=== PATIENT | male | born 1985 | race Caucasian/White ===

== ENCOUNTER 2020-12-30 14:32 | Emergency (ER) | payer SELFPAY ==
[~2020-12-30] VITALS: Ht 177.8 cm; Wt 75.8 kg
[2020-12-30 14:36] VITALS: BP 122/84
[2020-12-30] MEDS ORDERED: DEXAMETHASONE 4 MG/ML, 1ML PO ONE (15:30)
[2020-12-30] MEDS ORDERED: DEXAMETHASONE 4 MG/ML, 1ML ONE (16:23)
--- NOTE | 2020-12-30 16:35 | NUR ---
AARON RN: PT DID NOT WANT TO STAY AFTER MEDICATION WAS GIVEN FOR MONITORING. PT VERBALIZES DISCHARGE INSTRUCTIONS. VS STABLE. NO ACUTE DISTRESS NOTED.
== END 2020-12-30 16:39 | disposition home or self-care (01) ==
LOC: ED 16:30
DX: J02.8 Acute pharyngitis due to other specified organisms (principal); B97.89 Other viral agents as the cause of diseases classified elsewhere
CPT/HCPCS: 87081; 87880; 99283; J1100